=== PATIENT | male | born 1955 | race Caucasian/White ===

== ENCOUNTER 2019-12-15 09:49 | Outpatient (CLI) | payer MEDICARE, OTHER, SELFPAY ==
--- NOTE | ~2019-12-15 | XR_ITS ---
XR abdomen/kub 1V 12/15/2019 10:17 Indication: Right flank pain Procedure: KUB Comparison: No prior studies for comparison. Findings: Bowel gas pattern is nonobstructive. Lung bases are unremarkable. No abnormal calcification s. No acute osseous abnormality. There are pelvic vascular calcifications. Impression: 1: No acute abdominal abnormality. Reviewed, dictated and finalized at location A. Impression: 1: No acute abdominal abnormality.
== END 2019-12-15 09:50 | disposition home or self-care (01) ==
PROVIDERS: PCP Family Medicine; Visit Provider Physician Assistant Medical
DX: R10.9 Unspecified abdominal pain (principal)
CPT/HCPCS: 74018

== ENCOUNTER → 2020-10-08 10:20 | Outpatient (CLI) | payer MEDICARE, SELFPAY ==
--- NOTE | ~2020-10-08 | XR_ITS ---
EXAMINATION:XR_CERV2-3V_CR DATE: 10/08/2020 15:15 INDICATION: Cervicalgia, right shoulder pain TECHNIQUE: AP, lateral, lateral swimmers and odontoid views of the cervical spine are provided. COMPARISON: None FINDINGS: Alignment is normal. The examination is limited by the patient's body habitus. The odontoid is intact. No fracture is identified. The vertebral body heights appear normal. There is mild loss o f intervertebral disc space height at C4-5 and C5-6. There is moderate uncovertebral joint osteoarthr itis on the left at C4-5 and mild uncovertebral joint osteoarthritis on the left at C5-6 and the righ t at C4-5. Prevertebral soft tissues are grossly normal. IMPRESSION: 1. Mild cervical spondylosis without acute findings. Reviewed, dictated and finalized at location A.
--- NOTE | ~2020-10-08 | XR_ITS ---
XR shoulder RT min 2V 10/08/2020 15:15 Indication: Right shoulder pain Procedure: 4 views right shoulder Comparison: No prior studies for comparison. Findings: No fracture, subluxation or dislocation. Mild osteoarthritis of the right shoulder. No sign ificant soft tissue abnormality. No foreign body. Impression: 1: No acute bone or joint abnormality. Reviewed, dictated and finalized at location B. Impression: 1: No acute bone or joint abnormality.
--- NOTE | ~2020-10-08 | XR_ITS ---
EXAMINATION: XR lumbar spine 2-3V DATE: 10/08/2020 15:15 INDICATION: Anterior right thigh numbness. TECHNIQUE: 3 views of lumbar spine were obtained. COMPARISON: CT abdomen and pelvis 10/19/2018 FINDINGS: Bone alignment is normal. Vertebral body heights are normal. There is mildly decreased disc height at L4-L5. There are endplate osteophytes at most levels. There is severe facet joint osteoart hritis at L4-L5. IMPRESSION: 1. Mild lumbar spondylosis. Reviewed, dictated and finalized at location A. IMPRESSION: 1. Mild lumbar spondylosis.
== END ==
PROVIDERS: Visit Provider Nurse Practitioner Family
DX: M25.511 Pain in right shoulder (principal); R20.0 Anesthesia of skin; M47.812 Spondylosis without myelopathy or radiculopathy, cervical region; M47.816 Spondylosis without myelopathy or radiculopathy, lumbar region
CPT/HCPCS: 72040; 72100; 73030

== ENCOUNTER 2021-04-03 12:48 | Outpatient (CLI) | payer MEDICARE, SELFPAY ==
--- NOTE | ~2021-04-03 | MR_ITS ---
EXAMINATION: MR shoulder RT wo con DATE: 04/03/2021 13:31 INDICATION: Right shoulder pain. TECHNIQUE: Magnetic resonance imaging (MRI) of the right shoulder was performed without intravenous c ontrast. Sequences included axial PD-weighted FS FSE, coronal oblique PD-weighted FS FSE and T2-weigh patti FS FSE, and sagittal oblique T2-weighted FS FSE and T1-weighted FSE. COMPARISON: Right shoulder radiograph 10/08/2020 FINDINGS: Coracoacromial arch: The acromion undersurface is curved in morphology (type II). There is moderate acromioclavicular join t osteoarthritis. There is mild subacromial/subdeltoid bursitis. Rotator cuff: There is mild supraspinatus tendinopathy and moderate infraspinatus tendinopathy. Teres minor tendon is normal. There is severe distal subscapularis tendinopathy. There is no asymmetric fatty atrophy of the rotator cuff muscle bellies. Biceps tendon and glenoid labrum: Biceps tendon is in bicipital groove. There is severe intra-articular biceps tendinopathy. There is e xtensive tearing of the glenoid labrum. Fluid: There is no glenohumeral joint effusion. Bones/cartilage: There is full-thickness cartilage loss of glenoid involving the inferior half of the articular surfac e with subchondral cysts. There is extensive partial thickness cartilage loss of humeral head. Osteop hytes are noted. IMPRESSION: 1. Severe glenohumeral joint chondrosis. 2. Severe rotator cuff tendinopathy. No tear. 3. Moderate acromioclavicular joint osteoarthritis. 4. Mild subacromial/subdeltoid bursitis. 5. Severe intra-articular biceps tendinopathy. Reviewed, dictated and finalized at location A. HEN FOOD SERVER
== END 2021-04-03 12:49 | disposition home or self-care (01) ==
PROVIDERS: PCP Family Medicine; Visit Provider Nurse Practitioner Family
DX: M25.511 Pain in right shoulder (principal); R20.0 Anesthesia of skin; M94.8X1 Other specified disorders of cartilage, shoulder; M75.81 Other shoulder lesions, right shoulder; M19.011 Primary osteoarthritis, right shoulder; M75.51 Bursitis of right shoulder; M67.921 Unspecified disorder of synovium and tendon, right upper arm
CPT/HCPCS: 73221

== ENCOUNTER 2023-05-28 15:31 | Outpatient (CLI) | payer MEDICARE, SELFPAY ==
--- NOTE | ~2023-05-28 | CT_ITS ---
EXAMINATION:CT lung screening DATE: 05/28/2023 15:46 INDICATION: Personal history of nicotine dependence. 60 pack year history. TECHNIQUE: Computed tomography (CT) of the chest was performed without intravenous contrast. Automate d exposure control and iterative reconstruction technique were employed. The dose-length product (DLP ) was 463.79 mGy-cm. COMPARISON: CT abdomen and pelvis 10/19/2018 FINDINGS: There is a stable 5 mm nodule in right lung lower lobe. There is a 6 mm nodule in right low er lobe not included on prior imaging. A calcified left lung nodule and calcified left hilar lymph no charo are consistent with old granulomatous disease. There is a 3 mm nodule left major fissure. There i s a 3 mm nodule in right upper lobe. No pleural effusion. The heart size is normal. There are coronar y artery calcifications. No pericardial effusion. There is mild chronic anterior wedging of multiple thoracic vertebral bodies. There is moderate thoracic spondylosis. IMPRESSION: 1. Lung-RADS category 3: Probably benign. Further evaluation is recommended with noncontrast low-dose chest CT in 6 months. Reviewed, dictated and finalized at location E. RANCE AUDITOR IMPRESSION: 1. Lung-RADS category 3: Probably benign. Further evaluation is recommended wit h noncontrast low-dose chest CT in 6 months.
== END 2023-05-28 15:32 | disposition home or self-care (01) ==
LOC: ANHIMG 15:32
PROVIDERS: PCP Family Medicine; Visit Provider Nurse Practitioner Family
DX: Z12.2 Encounter for screening for malignant neoplasm of respiratory organs (principal); Z87.891 Personal history of nicotine dependence; R91.8 Other nonspecific abnormal finding of lung field
CPT/HCPCS: 71271

== ENCOUNTER 2023-11-18 09:12 | Outpatient (CLI) | payer MEDICARE, SELFPAY ==
--- NOTE | ~2023-11-18 | CT_ITS ---
CT Scan of the Chest without Contrast: Clinical Indication: Pulmonary nodule Technique: Contiguous sections were acquired throughout the chest without intravenous contrast. Dose reduction technique was used on this scan by utilizing automated exposure control and iterative recon struction technique. The dose-length product (DLP) was 600.59 mGy-cm. COMPARISON: 05/28/2023 Findings: There is no evidence of any significant mediastinal, hilar or axillary lymphadenopathy. The mediastin al soft tissues appear normal. There is no evidence of pleural or pericardial effusion. Stable 5 mm right lower lobe pulmonary nodule (axial image 66). Stable perifissural nodule in the ant erior right lung (axial image 69). Stable 4 mm right basilar pulmonary nodule (axial image 94). Images through the upper abdomen reveal no abnormalities. Impression: Stable subcentimeter pulmonary nodules, as detailed above. Reviewed, dictated and finalized at location . Impression: Stable subcentimeter pulmonary nodules, as detailed above.
== END 2023-11-18 09:13 | disposition home or self-care (01) ==
LOC: ANHIMG 09:15
PROVIDERS: PCP Family Medicine; Visit Provider Nurse Practitioner Family
DX: R91.1 Solitary pulmonary nodule (principal); R91.8 Other nonspecific abnormal finding of lung field
CPT/HCPCS: 71250